=== PATIENT | female | born 1990 | race Caucasian/White ===

== ENCOUNTER 2018-08-11 09:49 | Inpatient (IN) | payer MEDICAID ==
[~2018-08-11] VITALS: Ht 152.4 cm; Wt 85.9 kg
[2018-08-11 10:03] VITALS: BP 132/72; PULSE 83; RESP 20; Ht 152.4 cm; Wt 85.9 kg
[2018-08-11] MEDS ORDERED: LACTATED RINGER'S 1,000 ML IV PRN (12:39)
[2018-08-11] MEDS: LACTATED RINGER'S 1,000 ML IV SCH ×3 (12:53→22:42)
[2018-08-11] MEDS ORDERED: METHYLERGONOVINE 0.2 MG INJ IM PRN (13:00)
[2018-08-11] MEDS ORDERED: LIDOCAINE 1% (MPF) 30 ML INJ INJ PRN (13:00)
[2018-08-11] MEDS ORDERED: MISOPROSTOL 200 MCG TAB PR PRN (13:00)
[2018-08-11] MEDS ORDERED: MINERAL OIL LIGHT 10 ML VIAL TOP PRN (13:00)
[2018-08-11] MEDS ORDERED: OXYTOCIN 30 UNITS/LR 500 ML IV PRN (13:00)
[2018-08-11] MEDS ORDERED: OXYTOCIN 30 UNITS/LR 500 ML IV SCH ×2 (13:00→16:30)
[2018-08-11] MEDS ORDERED: CARBOPROST 250 MCG INJ IM PRN (13:00)
[2018-08-11] MEDS ORDERED: BUTORPHANOL 2 MG INJ IV PRN (13:00)
[2018-08-11] MEDS ORDERED: IBUPROFEN 600 MG TAB PO PRN (13:00)
[2018-08-11] MEDS ORDERED: AMPICILLIN 2 GM/NS (PMX) 100 ML IVPB ONE (15:00)
--- NOTE | 2018-08-11 16:00 | HP ---
Date/Time of Note Date/Time of Note DATE: 08/11/18 TIME: 15:54 OB - History Hx of Present Free Text/Dictation 28 years old 02 feet 1 delivery and one for at 39 weeks seen at the [facility] and was noted DONNA is 3.2 cm. She referred to labor and delivery for induction of labor. She states good movement. She denies nausea, vomiting, shortness of breath, chest pain, headache, visual changes, vaginal bleeding or LOF. Risk factors: 1. Oligohydramnios 2. Low SUSHANT A Chief Complaint: Admission for oligohydramnios Estimated Due Date: Aug 19, 2018 : 3 Para: 2 Spontaneous : 0 Therapeutic : 0 Care: Good Care Ultrasounds: Normal mid trimester US Obstetrical Complications: None Medical Complications: None Past Family/Social History * Past Medical, Surgical, Family and Obstetric Histories reviewed from chart. Blood Type: O+ Rubella: immune RPR/VDRL: Negative HBsAG: Negative OB Admission Exam Vital Signs Vital Signs Vital Signs Date Temp Pulse Resp B/P (MAP) Pulse Ox O2 O2 Flow FiO2 Time Delivery Rate 08/11/18 97.9 83 20 132/72 Room Air 10:03 (92) Physical Exam HEENT: WNL Heart: Rhythm Normal Lungs: Clear Abdomen: WNL Extremities: Normal Cervical Dilatation: 1cm Effacement: 25% Station: -3 Membranes: Intact Heart Rate: 130's Accelerations: Accelerations Present Decelerations: No Decelerations Varibility: Moderate (She) Contractions on Admission: >10 Minutes Apart ( my name is at home) Last 72 hours Lab Results CBC & BMP 08/11/18 12:10 OB Assessment/Plan Other plan: 28 years old 3 para 2-0-0-2 with single intrauterine at 39 weeks with oligohydramnios. - FHR: No sign of metabolic acidosis- Category I - Continuous EFM, toco - CBC, blood type and screen - Analgesia options with R/B/A discussed in detail with patient - Epidural per patient request - Please see the orders - O+/Rubella: Immune Admission, procedures, expectations, risks and possible complications have been discussed in detail with the patient. Risk of vaginal delivery including but not limited to bleeding, infection, cervical laceration, placental retention, injury to fetus, blood transfusion, blood transfusion related infection, risk of anesthesia, adhesion, cervical laceration, episiotomy/laceration, possible delivery with risk of bleeding, infection, injury to other organs (bowel, bladder, ureter, vessels, nerves), injury to fetus, blood transfusion, blood transfusion related infection, risk of anesthesia, scar and hernia formation, needs for future , removal of uterus or any other indicated surgery discussed with the patient. She expressed understanding and repeats the risks. All of her questions were answered. She signed the informed consent. PHYSICIAN'S VERIFICATION OF INFORMED CONSENT The patient was counseled regarding the procedure, its indications, risks, potential complications and alternatives and any questions were answered. Consent was obtained. PLANNED PROCEDURE/TREATMENT: Vaginal delivery, episiotomy, repair of laceration possible delivery Addendum: Mechanical induction of labor with risks, benefits and alternatives discussed with patient in detail. She has agreed, cervical ripening balloon placed. Patient tolerated procedure well KATHERINE PERRY Aug 11, 2018 16:00
[2018-08-11] MEDS ORDERED: AMPICILLIN 1 GM/NS (PMX) 50 ML IVPB SCH (18:00)
[2018-08-11] MEDS: AMPICILLIN 1 GM/NS (PMX) 50 ML IVPB SCH ×2 (18:46→23:00)
[2018-08-12] MEDS: OXYTOCIN 30 UNITS/LR 500 ML IV SCH ×2 (00:41→02:07)
--- NOTE | 2018-08-12 01:38 | LDN ---
Date/Time of Note Date/Time of Note DATE: 08/12/18 TIME: 01:36 Delivery Summary of normal female Weeks of Gestation 39w1d Placenta Delivered: Spontaneously, Intact & Complete Meconium: none Episiotomy: No Perineal laceration: 1 Laceration repair: 000ch gut Anesthesia type: Local Estimated blood loss: 100 Sponge & Needle done & correct: Yes All needle counts correct: Yes Any foreign bodies felt in the: No Infant Delivery Information Sex Sex: female Apgars 1 Minute: 9 5 Minute: 9 Suctioning Nose & mouth suctioned at sailaja: Yes Delee suction performed: Yes Umbilical Cord Umbilical cord with: 3 Vessels Cord presentations: no nuchal cord Cord Blood was obtained: Yes Mother & Baby Disposition Disposition Mom & Baby to Maternity; Good: Yes Mom transferred to: Other Baby to NICU: No () HARRIET ESCALANTE MD Aug 12, 2018 01:38
[2018-08-12 02:15] VITALS: BP 130/80; PULSE 64; RESP 19
[2018-08-12] MEDS ORDERED: MISOPROSTOL 200 MCG TAB PR PRN (03:00)
[2018-08-12] MEDS ORDERED: CARBOPROST 250 MCG INJ IM PRN (03:00)
[2018-08-12] MEDS ORDERED: WITCH HAZEL/GLYCERIN PAD PR PRN (03:00)
[2018-08-12] MEDS ORDERED: BENZOCAINE 20% 56 ML SPRAY TOP PRN (03:00)
[2018-08-12] MEDS ORDERED: METHYLERGONOVINE 0.2 MG INJ IM PRN (03:00)
[2018-08-12] MEDS ORDERED: OXYTOCIN 30 UNITS/LR 500 ML IV PRN (03:00)
[2018-08-12] MEDS ORDERED: OXYCODONE/ASPIRIN (4.88/325) TAB PO PRN ×2 (03:00)
[2018-08-12] MEDS ORDERED: ZOLPIDEM 5 MG TAB PO PRN (03:00)
[2018-08-12 04:00] VITALS: BP 125/74; PULSE 69; RESP 19
[2018-08-12] MEDS ORDERED: LACTATED RINGER'S 1,000 ML IV SCH (04:30)
[2018-08-12] MEDS: LANOLIN HPA 1 PKT TOP PRN (05:25)
[2018-08-12] MEDS: IBUPROFEN 600 MG TAB PO SCH ×5 (05:25→23:38)
[2018-08-12 08:45] VITALS: BP 96/55; PULSE 89; RESP 18
[2018-08-12] MEDS: SENNA/DOCUSATE NA (8.6MG/50MG) TAB PO SCH ×2 (09:49→21:55)
[2018-08-12 15:40] VITALS: BP 110/71; PULSE 86; RESP 18
[2018-08-12 21:15] VITALS: BP 106/51; PULSE 84; RESP 18
[2018-08-13 04:00] VITALS: BP 107/68; PULSE 71; RESP 17
[2018-08-13] MEDS: IBUPROFEN 600 MG TAB PO SCH ×2 (05:40→11:45)
[2018-08-13 08:00] VITALS: BP 99/59; PULSE 72; RESP 18
[2018-08-13] MEDS: LANOLIN HPA 1 PKT TOP PRN (10:10)
[2018-08-13] MEDS: SENNA/DOCUSATE NA (8.6MG/50MG) TAB PO SCH (10:10)
[2018-08-13] MEDS ORDERED: DIPHTH/TET/ACEL PERTUSS (ADULT) 0.5 ML VIAL IM* ONE (12:00)
--- NOTE | 2018-08-13 12:59 | QN ---
Documentation Comment PPD#2 is stable afebrile tolerates diet No VB +BM +Voids VS stable Gen NAD Abd soft NT ND Gentalia No blood at perineum -->Discharge Home -->Precautions discussed PAVEL SANDHU M.D. Aug 13, 2018 12:59
--- NOTE | 2018-08-13 13:00 | DS ---
Date/Time of Note Date/Time of Note DATE: 08/13/18 TIME: 12:59 Discharge Summary Admission/Discharge Info Admit Date/Time Aug 11, 2018 at 10:29 Discharge Date/Time 08/13/2018 Discharge Diagnosis Patient Condition: Good Hospital Course uneventful Home Meds No Active Prescriptions or Reported Meds Primary Care Provider Not On Staff Doctor Pending Labs Laboratory Tests Test 08/13/18 08:35 White Blood Count 9.4 10^3/ul (4.8-10.8) Red Blood Count 4.27 10^6/ul (4.20-5.40) Hemoglobin 10.7 g/dl (12.0-16.0) Hematocrit 34.6 % (37.0-47.0) Mean Corpuscular Volume 81.0 fl (82.0-101.0) Mean Corpuscular Hemoglobin 25.1 pg (29.0-33.0) Mean Corpuscular Hemoglobin Concent 30.9 g/dl (32.0-37.0) Red Cell Distribution Width 14.7 % (11.5-14.5) Platelet Count 304 10^3/UL (140-415) Mean Platelet Volume 10.1 fl (7.4-10.4) Immature Granulocytes % 1.400 % (0.001-0.429) Neutrophils % 69.0 % (39.0-77.0) Lymphocytes % 22.5 % (15.0-51.0) Monocytes % 6.0 % (0.0-11.0) Eosinophils % 0.9 % (0.0-7.0) Basophils % 0.2 % (0.0-2.0) Nucleated Red Blood Cells % 0.0 /100WBC (0.0-0.0) Immature Granulocytes # 0.130 10^3/ul (0.0-0.031) Neutrophils # 6.5 10^3/ul (1.6-7.5) Lymphocytes # 2.1 10^3/ul (0.8-2.9) Monocytes # 0.6 10^3/ul (0.3-0.9) Eosinophils # 0.1 10^3/ul (0.0-0.5) Basophils # 0.0 10^3/ul (0.0-0.1) Nucleated Red Blood Cells # 0.0 10^3/ul (0.0-0.0) PAVEL SANDHU M.D. Aug 13, 2018 13:00
[2018-08-14] MEDS ORDERED: DIPHTH/TET/ACEL PERTUSS (ADULT) 0.5 ML VIAL IM* ONE (09:00)
--- NOTE | 2018-08-15 11:22 | DELSUM ---
Delivery Summary A-C Datetime Report Generated by CPN: 08/15/2018 11:20 DELIVERY PERSONNEL Candy Counter Clerk: Amanda Santiago MATERNAL INFORMATION Delivery Anesthesia: Local Medications in Delivery: Pitocin 30 units Delivery QBL (ml): 100 Maternal Complications: Other Other Maternal Complications: GBS not done LABOR SUMMARY EDC: 08/18/2018 00:00 No. Babies in Womb: 1 Attempted: Yes Labor Anesthesia: None LABOR INFORMATION Complete Dilatation: 08/11/2018 23:30 Cervical Ripening Agents: Ripening Balloon Group B Beta Strep: Not Done Antibiotics # of Doses: 3 Antibiotics Time of Last Dose: 08/11/2018 23:00 MEMBRANES Membranes Rupture Method: Spontaneous Rupture of Membranes: 08/11/2018 23:20 Length of Rupture (hr): 0.65 Amniotic Fluid Color: Clear Amniotic Fluid Amount: Small Amniotic Fluid Odor: None STAGES OF LABOR Stage 2 hr: 0 Stage 2 min: 29 Stage 3 hr: 0 Stage 3 min: 6 VAGINAL DELIVERY Episiotomy: None Laceration Extension: First Degree Laceration Type: Perineal Laceration Repair: Yes Initial Vag Sponge Count: 10 Final Vag Sponge Count: 10 Initial Vag Sharps Count: 1 Final Vag Sharps Count: 2 Sponge Count Correct: Yes Sharps Count Correct: Yes Count Comment: added 1 suture BABY A INFORMATION Infant Delivery Date/Time: 08/11/2018 23:59 Method of Delivery: Vaginal Born in Route : No : Successful Forceps: N/A Vacuum Extraction: N/A Shoulder Dystocia : N/A SHOULDER DYSTOCIA BABY A Infant Delivery Date/Time: 08/11/2018 23:59 PRESENTATION/POSITION BABY A Presentation: Cephalic Cephalic Presentation: Vertex Breech Presentation: N/A PLACENTA INFORMATION BABY A Placenta Delivery Time : 08/12/2018 00:05 Placenta Method of Delivery: Spontaneous Placenta Status: Delivered SCORES BABY A Heart Rate 1 min: >100 bpm Resp Effort 1 min: Good Cry Reflex Irritability 1 min: Cough/Sneeze/Pulls Away Muscle Tone 1 min: Active Motion Color 1 min: Body [place], Extremit Blue SCORE 1 MIN: 9 Heart Rate 5 min: >100 bpm Resp Effort 5 min: Good Cry Reflex Irritability 5 min: Cough/Sneeze/Pulls Away Muscle Tone 5 min: Active Motion Color 5 min: Body [place], Extremit Blue SCORE 5 MIN: 9 INFORMATION BABY A Gestational Age at Delivery: 39.0 Gestational Status: Full Term- 39- 40.6 Weeks Outcome : Liveborn Infant Condition : Stable Infant Sex: Female IDENTIFICATION/MEDS BABY A ID Band Number: [id number] ID Band Location: Right Leg; Left Arm Sensor Applied: Yes Sensor Number: [id number] Sensor Location : Cord Clamp Vitamin K Given : Not Given Erythromycin Given: Not Given WEIGHT/LENGTH BABY A Birthweight (gm): 2850 Weight (lb): 6 Weight (oz): 5 Length (in): 18.50 Infant Length (cm): 46.99 CORD INFORMATION BABY A No. Cord Vessels: 3 Nuchal Cord : N/A Cord Blood Taken: Yes Suction: Mouth; Nose ASSESSMENT BABY A Complications: None Physical Findings at Delivery: Within Normal Limits Infant Respirations: Appears Normal Tierce Filler/ALS Called : No Transferred To: Remains with Mother
--- NOTE | 2018-08-15 15:07 | NSTRPT ---
NST Information Datetime Report Generated by CPN: 08/15/2018 15:06 Datetime: 08/11/2018 08:30 NST Information EGA: 39.0 Test Number: 6 Time on Monitor: 08/11/2018 09:06 Time off Monitor: 08/11/2018 09:15 NST Duration (Min): 9 Reason for NST: Low SUSHANT Test and Monitor Explained: Monitor Explained; Test Explained; Verbalized Understanding Pulse: 87 Resp: 18 SBP: 127 DBP: 76 Test Evaluation NST Interventions: None NST Interventions Other: Stopped prior to 20 minutes due to transfer to L/D Patient States Movement: Present Contraction Frequency: x2 FHR Baseline : 135 Variability: Moderate 6-25bpm Accelerations: 15X15 Decelerations: None FHR Category: Category I NST Results: Reactive Provider Notified: Dr Veronica re low DONNA Comments: to us- DONNA 3.[address] Ambrosio informed.of low DONNA Pt sent to LD for direct admit Report given to Nat Freitas RN. records faxed to L_D Electronically Signed By E-Signature: with User ID: [id number] Datetime: 08/08/2018 08:30 NST Information EGA: 38.4 NST Duration (Min): 24 Datetime: 08/04/2018 08:22 NST Information EGA: 38.0 NST Duration (Min): 25 Datetime: 08/01/2018 08:06 NST Information EGA: 37.4 NST Duration (Min): 26 Datetime: 07/28/2018 08:14 NST Information EGA: 37.0 NST Duration (Min): 27 Datetime: 07/25/2018 08:33 NST Information EGA: 36.4 Datetime: 07/25/2018 08:25 NST Duration (Min): 21
== END 2018-08-13 13:30 | disposition home or self-care (01) | DRG 807 ==
LOC: OBT 09:49 → L-D 09:50 → OBT 10:24 → L-D 10:24 → PP1 08-12 02:41 → EDSTATUS 08-19 10:28
PROVIDERS: ADMIT Obstetrics & Gynecology; ATTEND Obstetrics & Gynecology
PROC: 4A1HXCZ Monitoring of Products of Conception, Cardiac Rate, External Approach (ICD-10-PCS; 2018-08-11)
PROC: 3E0P7GC Introduction of Other Therapeutic Substance into Female Reproductive, Via Natural or Artificial Opening (ICD-10-PCS; 2018-08-11)
PROC: 10E0XZZ Delivery of Products of Conception, External Approach (ICD-10-PCS; principal; 2018-08-12)
PROC: 0HQ9XZZ Repair Perineum Skin, External Approach (ICD-10-PCS; 2018-08-12)
PROC: 3E0234Z Introduction of Serum, Toxoid and Vaccine into Muscle, Percutaneous Approach (ICD-10-PCS; 2018-08-13)
DX: O41.03X0 Oligohydramnios, third trimester, not applicable or unspecified (principal); Z37.0 Single live birth; O70.0 First degree perineal laceration during delivery; O28.1 Abnormal biochemical finding on antenatal screening of mother; Z3A.39 39 weeks gestation of pregnancy; Z23 Encounter for immunization
CPT/HCPCS: 76815; 85025; 85610; 85730; 86592; 86850; 86900; 86901; 87340; 90715; G0463; J0290; J2590; J7120

== ENCOUNTER 2018-11-30 13:52 | Day surgery (SDC) | payer MEDICAID ==
[2018-11-30] VITALS (12 sets, daily range): BP systolic 91–141; BP diastolic 44–73; PULSE 72–84; RESP 13–19
[~2018-11-30] VITALS: Ht 152.4 cm; Wt 77.5 kg
[~2018-11-30 13:52] MED LIST: CEFAZOLIN 2 GM/50 ML (PMX) 50 ML IVPB SCH; LACTATED RINGER'S 1,000 ML IV SCH
--- NOTE | 2018-11-30 16:30 | HP ---
Date/Time of Note Date/Time of Note DATE: 11/30/18 TIME: 16:24 Assessment/Plan VTE Prophylaxis Pharmacological prophylaxis: NA/contraindicated Pharm contraindication: low risk/ambulating Lines/Catheters IV Catheter Type (from Nrs): Peripheral IV Assessment/Plan Assessment/Plan multiparity with desire fir sterilization will proceed with laparoscopic vs. minilap BTL Result Diagram: 11/30/18 1445 Results 24hrs Laboratory Tests Test 11/30/18 14:45 White Blood Count 8.9 Red Blood Count 4.68 Hemoglobin 12.3 Hematocrit 37.9 Mean Corpuscular Volume 81.0 L Mean Corpuscular Hemoglobin 26.3 L Mean Corpuscular Hemoglobin Concent 32.5 Red Cell Distribution Width 14.1 Platelet Count 366 # Mean Platelet Volume 9.9 Immature Granulocytes % 0.300 Neutrophils % 60.1 Lymphocytes % 32.5 Monocytes % 6.0 Eosinophils % 0.9 Basophils % 0.2 Nucleated Red Blood Cells % 0.0 Immature Granulocytes # 0.030 Neutrophils # 5.4 Lymphocytes # 2.9 Monocytes # 0.5 Eosinophils # 0.1 Basophils # 0.0 Nucleated Red Blood Cells # 0.0 Prothrombin Time 12.6 Prothrombin Time Ratio 1.0 INR International Normalized Ratio 0.93 Activated Partial Thromboplast Time 39.2 H HPI/ROS Admit Date/Time Admit Date/Time 11/30/2018 Hx of Present Illness 28 y/o female P3 with here for sterilization LMP : 09/11/2018 currently on BCPs ROS no major complaints Constitutional: no complaints, improved Eyes: no complaints ENT: no complaints Respiratory: no complaints Cardiovascular: no complaints Gastrointestinal: no complaints Genitourinary: no complaints Musculoskeletal: no complaints Skin: no complaints Neurologic: no complaints Endocrine: no complaints Lymphatic: no complaints Psychological: no complaints, nl mood/affect Immunologic: no complaints PMH/Family/Social Past Medical History Medical History: no pertinent history Medications Current Medications Lactated Ringer's 1,000 ml @ 25 mls/hr Q24H IV Last administered on 11/30/18at 15:18; Admin Dose 25 MLS/HR; Start 11/30/18 at 06:00; Stop 12/01/18 at 21:59 Cefazolin Sodium/ Dextrose 50 ml @ 100 mls/hr PREOP IVPB ; Start 11/30/18 at 06:00; Stop 11/30/18 at 19:00 Coded Allergies: No Known Allergy (Unverified , 08/11/18) Past Surgical History Past Surgical Hx: other (previous C/S ) Family History Significant Family History: no pertinent family hx Social History Alcohol Use: none Smoking Status: Never smoker Drug Use: none Exam/Review of Systems Vital Signs Vitals Vital Signs Date Temp Pulse Resp B/P (MAP) Pulse Ox O2 O2 Flow FiO2 Time Delivery Rate 11/30/18 98.6 72 16 113/60 99 Room Air 15:41 (77) Exam Exam patient does not seem in acute steress Constitutional: alert, oriented, well developed Psych: no complaints, nl mood/affect Head: normocephalic, atraumatic Eyes: nl conjunctiva, EOMI, nl lids, nl sclera, PERRL ENMT: nl external ears & nose, nl lips & teeth, nl nasal mucosa & septum Neck: supple, non-tender Respiratory: clear to auscultation, normal air movement Cardiovascular: regular rate and rhythm, nl pulses Gastrointestinal: soft, nl liver, spleen, non-tender Musculoskeletal: nl extremities to inspection Extremities: normal pulses Neurological: PICKER FEEDER II-XII intact, nl mental status, nl speech, nl strength Skin: nl turgor; No rash or lesions Lymph: nl lymph nodes REHAN MURPHY MD Nov 30, 2018 16:30
--- NOTE | 2018-11-30 16:32 | PREAC ---
Date/Time of Note Date/Time of Note DATE: 11/30/18 TIME: 16:30 Anesthesia Eval and Record Evaluation Time Pre-Procedure Interview DATE: 11/30/18 TIME: 16:30 Age 28 Sex female NPO: 8 hrs Preoperative diagnosis Patient's request for BTL Planned procedure Laparoscopic vs open Bilateral Tubal Ligation, possible Minilaparotomy Past Medical History Past Medical History: Includes : : (3), Para: (3) Surgery & Anesthesia Issues No known issue Meds Anticoagulation: No Beta Denny within 24 hr: No Reason Beta Denny not given: Pt. not on B-Denny No Active Prescriptions or Reported Meds Current Medications Lactated Ringer's 1,000 ml @ 25 mls/hr Q24H IV Last administered on 11/30/18at 15:18; Admin Dose 25 MLS/HR; Start 11/30/18 at 06:00; Stop 12/01/18 at 21:59 Cefazolin Sodium/ Dextrose 50 ml @ 100 mls/hr PREOP IVPB ; Start 11/30/18 at 06:00; Stop 11/30/18 at 19:00 Meds reviewed: Yes Allergies Coded Allergies: No Known Allergy (Unverified , 08/11/18) Allergies Reviewed: Yes Labs/Studies Labs Reviewed: Reviewed by anesthesiologist Result Diagram: 11/30/18 1445 Laboratory Tests 11/30/18 14:45 test: Negative Studies: ECG (n/a), CXR (n/a) Pre-procedure Exam Last vitals Vital Signs Date Temp Pulse Resp B/P (MAP) Pulse Ox O2 O2 Flow FiO2 Time Delivery Rate 11/30/18 98.6 72 16 113/60 99 Room Air 15:41 (77) Airway: Adequate mouth opening, Adequate thyromental dist Mallampati: Mallampati II Teeth: Normal Lung: Normal Heart: Normal ASA Physical Status ASA physical status: 1 Emergency: None Planned Anesthetic General/MAC: ETT Nerve block: TAP (bilateral) Pre-operative Attestations Prior to commencing anesthesia and surgery, the patient was re-evaluated, there was verification of: *The patient's identity *The results of appropriate recent lab work and preoperative vital signs *The above evaluation not changing prior to induction *Anesthetic plan, risk benefits, alternative and complications discussed with patient/family; questions answered; patient/family understands, accepts and wishes to proceed. VERNON GALLAGHER MD Nov 30, 2018 16:32
[2018-11-30] MEDS ORDERED: BUPIVACAINE 0.25%/EPI (SDV) 30 ML INJ ONE (16:34)
[2018-11-30] MEDS ORDERED: FENTAnyl 50 MCG/ML VIAL IV PRN ×3 (17:00)
[2018-11-30] MEDS ORDERED: OXYCODONE/ACETAMINOPHEN (5/325) TAB PO PRN (17:00)
[2018-11-30] MEDS ORDERED: ONDANSETRON 4 MG INJ IV PRN (17:00)
[2018-11-30] MEDS ORDERED: LABETALOL HCL 20MG INJ IV PRN (17:00)
[2018-11-30] MEDS ORDERED: MEPERIDINE 25 MG INJ IV PRN (17:00)
[2018-11-30] MEDS ORDERED: HYDROmorphONE 1 MG/5 ML IV SYRINGE IV PRN ×3 (17:00)
[2018-11-30] MEDS ORDERED: METOCLOPRAMIDE 10 MG INJ IV PRN (17:00)
[2018-11-30] MEDS ORDERED: DIPHENHYDRAMINE 50 MG INJ IV PRN (17:00)
[2018-11-30] MEDS ORDERED: EPHEDrine 25 MG/5 ML SYG IV PRN (17:00)
[2018-11-30] MEDS ORDERED: ACETAMINOPHEN 500 MG TAB PO STA (18:20)
[2018-11-30] MEDS ORDERED: KETOROLAC 60 MG INJ IM STA (18:20)
--- NOTE | 2018-11-30 18:23 | PAC ---
Date/Time of Note Date/Time of Note DATE: 11/30/18 TIME: 18:23 Post-Anesthesia Notes Post-Anesthesia Note Last documented vital signs Vital Signs Date Temp Pulse Resp B/P (MAP) Pulse Ox O2 O2 Flow FiO2 Time Delivery Rate 11/30/18 100.9 72 16 113/60 99 Room Air 18:21 (77) Activity: WNL Respiratory function: WNL Cardiovascular function: WNL Mental status: Baseline Pain reasonably controlled: Yes Hydration appropriate: Yes Nausea/Vomiting absent: Yes VERNON GALLAGHER MD Nov 30, 2018 18:23
--- NOTE | 2018-11-30 18:25 | OPR ---
Operative Report Planned Procedure Free Text/Dictation 28-year-old female for voluntary sterilization Procedure date Nov 30, 2018 Procedure(s) Bilateral tubal fulguration using laparoscopy Performed by see signature line Anesthesiologist: VERNON GALLAGHER MD Pre-procedure diagnosis Multiparity with desire for sterilization [id number] Anesthesia Type: [id number] general Post-Procedure Post-procedure diagnosis Status post bilateral tubal fulguration Findings Appearing right and left fallopian tubes and ovaries Estimated Blood Loss: minimal Specimen(s) none Grafts/Implant(s) none Complication(s) none Pt Condition post procedure: stable Disposition: PACU Procedure Description The patient was placed on the OR table in the supine position. General anesthesia was induced. The patient was turned into lithotomy position for vaginal and laparoscopic procedure specifically. Perineal, vaginal, and abdominal area were then prepped with Betadine and draped for a usual laparoscopic procedure and a vaginal procedure. A Montes catheter was then inserted into urinary bladder under aseptic condition in operating room and under satisfactory anesthesia, a small speculum was inserted into vagina. Anterior lip of the cervix was secured with a tenaculum. Cervix was brought down to operative field. It was progressively dilated to #6 Hegar. A HUMI elevator was inserted into cervical canal and afterwards uterine cavity. After insufflation of the tube all the other instruments were removed from vaginal cavity. After changing gloves, turning to abdominal side, a small incision was placed just below belly button 0.5 cm in length. A 0.5 cm trocar was introduced inside the incision. The trocar was blunt and pointing toward the uterine dome. The trocar was easily inserted inside the abdominal. A laparoscope was then inserted into the abdominal cavity, making sure the correct cavity was entered. Intra-abdominal cavity was insufflated with CO2. Under direct visualization a small incision was made a 0.5 cm in length about 2 to 3 fingerbreadths above and parallel to the symphysis pubis. A 0.5 cm trocar was then introduced inside the incision. Under direct visualization the second probe was also inserted into abdominal cavity easily. The uterus and fallopian tubes were easily identified. Right fallopian tube was approached first and at least 5 cm of the tube was adequately fulgurated, making sure no live tissue was left in between. The same procedure was done on the left side. Serious care was taken to avoid bowel, bladder, or other intra-abdominal organ injury. At this point, procedure was terminated. The trocar incision sites from inside the abdomen on either side were observed. No bleeding was observed. After removing the laparoscope, the abdomen was desufflated to its normal position. Afterwards, all of the trocar sleeves were removed. Abdominal incisions were closed using wendi. The HUMI was then discontinued. Also, Montes was taken out. The patient was returned to supine position. Estimated blood loss was less than 5 mL. The patient t olerated the procedure very well and was transferred to postanesthesia recovery room in stable and good condition. REHAN MURPHY MD Nov 30, 2018 18:25
[2018-11-30] MEDS ORDERED: BUTORPHANOL 2 MG INJ IM ONE (18:30)
[2018-11-30] MEDS ORDERED: DOXYCYCLINE 100 MG TAB PO ONE (18:30)
[2018-11-30] MEDS ORDERED: KETOROLAC 30 MG INJ IM STA (18:38)
== END 2018-11-30 20:05 | disposition home or self-care (01) ==
LOC: SDS 13:52
PROVIDERS: ATTEND Obstetrics & Gynecology
DX: Z30.2 Encounter for sterilization (principal)
CPT/HCPCS: 58670; 84703; 85025; 85610; 85730; J0595; J1885; J2405; Z7512; Z7610